=== PATIENT | female | born 1980 | race Caucasian/White ===

== ENCOUNTER 2019-07-29 16:24 | Emergency (ER) | payer OTHER ==
[~2019-07-29] VITALS: Ht 165.1 cm; Wt 55.8 kg
[~2019-07-29 16:24] MED LIST: DOXYCYCLINE 10100 M1 PO
[2019-07-29 16:28] VITALS: BP 171/96
[2019-07-29] MEDS ORDERED: LIDOCAINE VISC100 ML SWISH&SPIT (17:30)
[2019-07-29] MEDS ORDERED: CLEOCIN HCL150 MG PO (17:30)
[2019-07-29] MEDS ORDERED: PERIDEX 0.12%473 M1 SWISH&SPIT (17:30)
== END 2019-07-29 17:35 | disposition home or self-care (01) ==
LOC: M.ERS 16:24
DX: K04.7 Periapical abscess without sinus (principal); G43.909 Migraine, unspecified, not intractable, without status migrainosus; K21.9 Gastro-esophageal reflux disease without esophagitis; F17.210 Nicotine dependence, cigarettes, uncomplicated; Z86.2 Personal history of diseases of the blood and blood-forming organs and certain disorders involving the immune mechanism